=== PATIENT | female | born 1995 | race Caucasian/White ===

== ENCOUNTER 2024-04-05 07:23 | Emergency (ER) | payer OTHER, SELFPAY ==
[2024-04-05 07:28] VITALS: BP 111/71
[2024-04-05 08:11] VITALS: BP 108/67; BMI 23.6
[2024-04-05] MEDS: NUPERCAINAL 1% OINTMENT 1 APPLIC TOPICAL (09:43)
--- NOTE | 2024-04-15 12:31 | ED.GENMED ---
History of Present Illness
General
Chief Complaint: Anal/Rectal Problem
Source: patient
Exam Limitations: none
Time Seen by Provider: 04/05/24 08:32
Nursing documentation reviewed up to this point in time: agreed with
History of Present Illness
History of Present Illness:
pt is a 28 yr old female approx 8 wks c/o of rectal pain. SHe was told she has an anal fissure. sHe has been using topical cream without relief. She denies any abdominal pain vaginal bleeding nausea vomiting fever chills. She does not
feel that she is straining.
Review of Systems
Review of Systems
Allergies reviewed?: Yes
Other source history: family
All Other Systems: ROS reviewed and negative except as documented in HPI and ROS
Constitutional: Reports no symptoms; Denies fever, fatigue or chills
Cardiac: Reports no symptoms
ABD/GI: Reports other (rectal pain ); Denies abdominal pain or vomiting
Musculoskeletal: Reports no symptoms
Skin: Reports no symptoms
Psychiatric: Reports no symptoms
Phy Exam
General Physical Exam
General Presentation: no apparent distress
General age: appears stated age
General Skin: warm and dry
General Habitus: normal
General Mental: alert
General Hydration: appears well hydrated
Gastrointestinal Exam
Gastrointestinal Exam: non tender, soft and other (rectal exam: no obvious fissure/abrasion to rectal area. small hemorrhoid like appearance )
Neurological Exam
Neurological Exam: alert and oriented x3
Musculoskeletal Exam
Musculoskeletal Exam: full ROM
Skin Exam
Skin Exam: normal color and warm/dry
Psychiatric Exam
Psychiatric Exam: normal mood/affect
Course
Orders/Labs/Results
Orders:
Orders
04/05/24 09:08
Dibucaine [Nupercainal 1% Ointment] See Dose Instructions TOPICAL NOW STA
Vital Signs
Initial and Last Documented VS:
Initial Vital Signs
Temp Pulse Resp BP Pulse Ox
98.7 F 96 20 111/71 98
04/05/24 07:28 04/05/24 07:28 04/05/24 07:28 04/05/24 07:28 04/05/24 07:28
Last Documented Vital Signs
Temp Pulse Resp BP Pulse Ox
98.4 F 96 20 108/67 99
04/05/24 08:11 04/05/24 07:28 04/05/24 07:28 04/05/24 08:11 04/05/24 08:45
MDM/Problems Addressed
MDM/Problems Addressed:
Patient is a 28-year-old female who complains of rectal pain. She was seen by nurse practitioner at colorectal diagnoses possible anal fissure however on exam there is no obvious fissure noted on exam there is a small what looks like external
hemorrhoid. She is 8 weeks and denies any vaginal bleeding or abdominal pain. She does not report she is on-call patient to the ED attending will DC on Anusol with close outpatient follow-up colorectal surgery
Chronic conditions affecting care:
8 wks
*Critical Care Note
Total Time (30-74mins, 75-104mins- exclusive of procedures): Not Applicable
ED Attending Note
-
Portions of this chart may have been created with voice recognition software.� Occasional wrong word or��sound alike� substitutions may have occurred due to the inherent limitations of voice recognition software.
Discharge Plan
Departure
Patient Disposition: Home (Routine Discharge)
Date of Disposition: 04/05/24
Time of Disposition: 12:00
Patient with high blood pressure during this ER visit?: No
Condition: Fair
Covid-19: Not Applicable
Discharge Problem:
rectal pain
Prescriptions:
New
hydrocortisone acetate [Anusol-HC] 25 mg suppository
25 mg TN DAILY Qty: 1 0RF
Referrals:
Elliot Huizar MD [Active] -
Ellen Riley CRNP [Family Provider] -
Activity Restrictions/Additional Instructions:
Follow-up with colorectal surgery. Please call Sunday morning. You were given 1 dose of suppository per rectum to use. Return if any worsening of symptoms of rectal bleeding abdominal pain vaginal bleeding any related to show or
worsening of symptoms.
Interventions
Interventions:
*Risk Screen - Suicide Last Done: 04/05/24 12:14
*General Assessment Last Done: 04/05/24 12:14
*Neglect/Abuse Screening Last Done: 04/05/24 12:14
ED- Fall Risk Assessment Last Done: 04/05/24 12:14
*ED COVID-19 Vaccine History Last Done: 04/05/24 12:14
*Nursing Disposition Last Done: 04/05/24 12:14
BF-Gmlrnx-Ejwdvusejg Assessment Last Done: 04/05/24 12:15
ED-Skin Assessment Last Done: 04/05/24 08:13
Discharge Date and Time
Discharge Date/Time: 04/05/24 12:15
Print Language: SYRIAC
== END 2024-04-05 12:15 | disposition home or self-care (01) ==
LOC: EMR 07:23
PROVIDERS: EMERGENCY PHYSICIAN Emergency Medicine; FAMILY PHYSICIAN Nurse Practitioner
DX: O26.891 Other specified pregnancy related conditions, first trimester (principal); K62.89 Other specified diseases of anus and rectum; Z3A.08 8 weeks gestation of pregnancy
CPT/HCPCS: 99282

== ENCOUNTER 2024-05-15 06:36 | Day surgery (SDC) | payer BC, SELFPAY ==
[2024-05-15 12:17] VITALS: BP 124/83
[2024-05-15 12:19] VITALS: BMI 23.0
[2024-05-15] MEDS: NORMOSOL-R/PLASMALYTE-A 1000 IV (12:48)
[2024-05-15 14:19] VITALS: BP 118/71
[2024-05-15 14:30] VITALS: BP 112/83
[2024-05-15 14:45] VITALS: BP 114/65
[2024-05-15 15:00] VITALS: BP 103/65
== END 2024-05-15 15:15 | disposition home or self-care (01) ==
LOC: SDS 06:36
PROVIDERS: ATTENDING PHYSICIAN Surgery
PROC: 0D8R0ZZ Division of Anal Sphincter, Open Approach (ICD-10-PCS; 2024-05-15)
DX: K60.2 Anal fissure, unspecified (principal)
CPT/HCPCS: 46080